=== PATIENT | male | born 1945 | race Caucasian/White ===

== ENCOUNTER 2019-04-08 15:36 | Emergency (ER) | payer SELFPAY ==
[~2019-04-08] VITALS: Ht 170.2 cm; Wt 70.0 kg
[2019-04-08 15:38] VITALS: BP 159/94; PULSE 94; RESP 16; Ht 170.2 cm; Wt 70.0 kg
== END 2019-04-08 16:38 | disposition left against medical advice (07) ==
LOC: FTE 15:36
DX: Z53.21 Procedure and treatment not carried out due to patient leaving prior to being seen by health care provider (principal)